=== PATIENT | female | born 1950 | race Caucasian/White ===

== ENCOUNTER → 2017-11-29 | Outpatient (CLI) | payer MEDICARE, OTHER ==
[2017-11-29 07:59] LABS: HEMATOCRIT 47.6 % (36.0-47.0); HEMOGLOBIN 15.4 g/dl (12.0-16.0); MEAN CORPUSCULAR HEMOGLOBIN 29.3 pg (27.0-33.0); MEAN CORPUSCULAR HGB CONC 32.4 g/dl (32.0-36.5); MEAN CORPUSCULAR VOLUME 90.7 fl (80.0-96.0); PLATELET COUNT, AUTOMATED 327 10^3/uL (150-450); RED BLOOD COUNT 5.25 10^6/uL (4.00-5.40); RED CELL DISTRIBUTION WIDTH 12.7 % (11.5-14.5); WHITE BLOOD COUNT 4.4 10^3/uL (4.0-10.0)
[2017-11-29 08:56] LABS: ESTIMATED AVERAGE GLUCOSE 192 MG/DL (60-110); HEMOGLOBIN A1c 8.3 %
[2017-11-29 09:36] LABS: ALBUMIN 3.7 GM/DL (3.2-5.2); ALKALINE PHOSPHATASE 125 U/L (45-117); ALT/SGPT 17 U/L (12-78); ANION GAP 5 MEQ/L (8-16); AST/SGOT 14 U/L (7-37); BILIRUBIN,TOTAL 0.5 MG/DL (0.2-1.0); BLOOD UREA NITROGEN 12 MG/DL (7-18); CALCIUM LEVEL 9.1 MG/DL (8.8-10.2); CARBON DIOXIDE LEVEL 28 MEQ/L (21-32); CHLORIDE LEVEL 109 MEQ/L (98-107); CHOLESTEROL LEVEL 182 MG/DL (<200); CHOLESTEROL RISK RATIO 3.137 (<5); CREATININE FOR GFR 0.67 MG/DL (0.55-1.02); GLOMERULAR FILTRATION RATE > 60.0 (>45); GLUCOSE, FASTING 89 MG/DL (80-110); HDL CHOLESTEROL 58 MG/DL (>40); NON-HDL-C 124 MG/DL; SODIUM LEVEL 142 MEQ/L (136-145); TOTAL PROTEIN 7.4 GM/DL (6.4-8.2); TRIGLYCERIDES LEVEL 80 MG/DL (<150)
[2017-11-29 12:24] LABS: TOTAL 25(OH) VITAMIN D 4.9 NG/ML (30.0-100.0)
== END ==
LOC: M RAD 07:19
DX: D64.9 Anemia, unspecified (principal); E03.9 Hypothyroidism, unspecified; Z79.899 Other long term (current) drug therapy
CPT/HCPCS: 71046

== ENCOUNTER → 2018-01-02 | Outpatient (CLI) | payer MEDICARE, OTHER ==
[2018-01-02 08:17] LABS: THYROID STIMULATING HORMONE 0.517 uIU/ML (0.358-3.740)
[2018-01-02 09:39] LABS: TOTAL 25(OH) VITAMIN D 22.6 NG/ML (30.0-100.0)
== END ==
LOC: M LAB 06:46
DX: E03.9 Hypothyroidism, unspecified (principal); R53.83 Other fatigue
CPT/HCPCS: 84443

== ENCOUNTER → 2018-02-27 | Outpatient (CLI) | payer MEDICARE, OTHER ==
[2018-02-27 08:40] LABS: THYROID STIMULATING HORMONE 0.061 uIU/ML (0.358-3.740)
[2018-02-27 08:40] LABS: THYROXINE (T4) 15.3 UG/DL (4.5-12.0)
[2018-03-01 10:49] LABS: TOTAL T3 119.3 NG/DL (60.0-181.0)
== END ==
LOC: M LAB 06:43
DX: E03.9 Hypothyroidism, unspecified (principal); R53.83 Other fatigue
CPT/HCPCS: 84443

== ENCOUNTER → 2018-05-30 | Outpatient (CLI) | payer MEDICARE, OTHER ==
[2018-05-30 06:59] LABS: HEMATOCRIT 47.6 % (36.0-47.0); HEMOGLOBIN 15.3 g/dl (12.0-15.5); MEAN CORPUSCULAR HEMOGLOBIN 29.5 pg (27.0-33.0); MEAN CORPUSCULAR HGB CONC 32.1 g/dl (32.0-36.5); MEAN CORPUSCULAR VOLUME 91.7 fl (80.0-96.0); PLATELET COUNT, AUTOMATED 271 10^3/uL (150-450); RED BLOOD COUNT 5.19 10^6/uL (4.00-5.40); WHITE BLOOD COUNT 5.3 10^3/uL (4.0-10.0)
[2018-05-30 07:36] LABS: ALBUMIN 3.4 GM/DL (3.2-5.2); ALBUMIN/GLOBULIN RATIO 0.89 (1.00-1.93); ALKALINE PHOSPHATASE 125 U/L (45-117); ALT/SGPT 19 U/L (12-78); ANION GAP 11 MEQ/L (8-16); AST/SGOT 17 U/L (7-37); BILIRUBIN,TOTAL 0.6 MG/DL (0.2-1.0); BLOOD UREA NITROGEN 15 MG/DL (7-18); CARBON DIOXIDE LEVEL 23 MEQ/L (21-32); CHLORIDE LEVEL 105 MEQ/L (98-107); CHOLESTEROL LEVEL 175 MG/DL (<200); CHOLESTEROL RISK RATIO 3.181 (<5); CREATININE FOR GFR 0.67 MG/DL (0.55-1.30); GLOMERULAR FILTRATION RATE > 60.0 (>45); GLUCOSE, FASTING 339 MG/DL (70-100); HDL CHOLESTEROL 55 MG/DL (>40); LDL CHOLESTEROL 97.6 MG/DL (<100); NON-HDL-C 120 MG/DL; SODIUM LEVEL 139 MEQ/L (136-145); THYROID STIMULATING HORMONE 0.983 uIU/ML (0.358-3.740); TOTAL PROTEIN 7.2 GM/DL (6.4-8.2); TRIGLYCERIDES LEVEL 112 MG/DL (<150)
[2018-05-30 09:23] LABS: ESTIMATED AVERAGE GLUCOSE 203 MG/DL (60-110); HEMOGLOBIN A1c 8.7 %
[2018-05-30 11:19] LABS: TOTAL 25(OH) VITAMIN D 56.2 NG/ML (30.0-100.0)
== END ==
LOC: M LAB 06:13
DX: D64.9 Anemia, unspecified (principal); E03.9 Hypothyroidism, unspecified; E11.9 Type 2 diabetes mellitus without complications
CPT/HCPCS: 84443

== ENCOUNTER → 2018-10-11 | Outpatient (REF) | payer MEDICARE, OTHER | LOC: M SFHCWAGY 15:44 | DX: N76.89 Other specified inflammation of vagina and vulva (principal); B96.89 Other specified bacterial agents as the cause of diseases classified elsewhere | CPT/HCPCS: 87077; 87186 ==

== ENCOUNTER 2019-02-03 16:17 | Inpatient (IN) | payer MEDICARE, OTHER ==
[~2019-02-03] VITALS: Ht 167.6 cm; Wt 95.5 kg
[~2019-02-03 16:17] MED LIST: /INSUNPH SC; ASPI325T PO; BAYE81TA PO; DOCU10ELUD PO; FERR325T3 PO; NAFC2INJ IV; NUCY75TA PO; RAMI2.5C PO; SYNT88TA2 PO; TYLE325T5 PO; ULTR50TA PO
[2019-02-03] MEDS ORDERED: LEVO125T4 (16:46)
--- NOTE | 2019-02-03 17:10 | REP ---
Clinical : Trauma. Technique: AP and lateral views of the left tibia / fibula. Findings: Comminuted fracture involving the proximal tibial metadiaphysis and suspected nondisplaced fracture involving the proximal fibular metadiaphysis. Overlying soft tissue swelling noted. Underlying age-related osteopenia and degenerative changes. Impression: Comminuted fractures of the proximal tibial metadiaphysis and suspected nondisplaced fracture of the proximal fibula. Electronically Signed by Lalito Araiza MD 02/03/2019 05:00 P
--- NOTE | 2019-02-03 17:13 | REP ---
Clinical: Trauma. Technique: AP, lateral, bilateral oblique views of the right ankle. Findings: Mildly displaced fractures involving the distal fibular metaphysis and medial malleolus with overlying soft tissue swelling and disruption of the ankle joint noted. Single oblique image 3 of 4 suggest the possibility of nondisplaced fracture involving either the talus or calcaneus which is not confirmed on the the other images. Impression: 1. Bimalleolar fracture dislocation at the ankle with overlying soft tissue swelling. 2. Single oblique image raises the possibility of nondisplaced fracture either involving the talus or calcaneus. Electronically Signed by Lalito Araiza MD 02/03/2019 05:04 P
--- NOTE | 2019-02-03 17:37 | REP ---
Clinical: Trauma with questionable hind foot injury. Technique: AP, lateral, bilateral oblique views of the right foot. Findings: Acute fracture dislocation involving the medial and lateral malleoli with overlying soft tissue swelling again noted. Osseous structures of the foot demonstrate age-related osteopenia and degenerative changes without further definite acute fracture. Impression: Fracture dislocation to the ankle. Degenerative changes of the foot without obvious further acute fracture identified. Electronically Signed by Lalito Arazia MD 02/03/2019 05:28 P
[2019-02-03] MEDS ORDERED: DRIS50003 PO ×2 (18:10)
[2019-02-03] MEDS ORDERED: ACET1TAB55 PO (18:10)
[2019-02-03] MEDS ORDERED: ASPI1TAB PO (18:10)
[2019-02-03] MEDS ORDERED: RAMI1CAP22 PO (18:10)
[2019-02-03] MEDS ORDERED: SYNT125T PO (18:10)
[2019-02-03] MEDS ORDERED: INSUN SC ×2 (18:10)
[2019-02-03] MEDS ORDERED: ALEV220T26 PO (18:11)
[2019-02-03] MEDS ORDERED: NS 1,000 ML IV SCH (18:15)
[2019-02-03] MEDS ORDERED: fentaNYL 100 MCG/2 ML INJECTION (J3010) IV ONE (18:15)
[2019-02-03 18:30] LABS: BASO # 0.1 10^3/uL (0.0-0.2); BASO % 0.4 % (0.0-1.0); EOS % 0.1 % (0.0-3.0); HEMATOCRIT 42.3 % (36.0-47.0); HEMOGLOBIN 13.8 g/dl (12.0-15.5); LYMPH # 1.4 10^3/uL (1.5-4.5); LYMPH % 10.7 % (24.0-44.0); MEAN CORPUSCULAR HEMOGLOBIN 29.8 pg (27.0-33.0); MEAN CORPUSCULAR HGB CONC 32.6 g/dl (32.0-36.5); MEAN CORPUSCULAR VOLUME 91.4 fl (80.0-96.0); MONO # 1.1 10^3/uL (0.0-0.8); MONO % 7.8 % (0.0-5.0); NEUTROPHILS # 10.8 10^3/uL (1.8-7.7); NEUTROPHILS % 80.7 % (36.0-66.0); PLATELET COUNT, AUTOMATED 335 10^3/uL (150-450); RED BLOOD COUNT 4.63 10^6/uL (4.00-5.40); WHITE BLOOD COUNT 13.4 10^3/uL (4.0-10.0)
[2019-02-03] MEDS ORDERED: fentaNYL 100 MCG/2 ML INJECTION (J3010) IV PRN (18:45)
[2019-02-03 18:55] LABS: BLOOD UREA NITROGEN 13 MG/DL (7-18); CALCIUM LEVEL 9.4 MG/DL (8.8-10.2); CARBON DIOXIDE LEVEL 26 MEQ/L (21-32); CHLORIDE LEVEL 104 MEQ/L (98-107); CREATININE FOR GFR 0.62 MG/DL (0.55-1.30); GLOMERULAR FILTRATION RATE > 60.0 (>45); GLUCOSE, FASTING 142 MG/DL (70-100); POTASSIUM SERUM 4.5 MEQ/L (3.5-5.1); SODIUM LEVEL 138 MEQ/L (136-145)
--- NOTE | 2019-02-03 19:32 | HPEPDOC ---
General Date of Admission 02/03/19 Attending Physician: KORINA TRAVIS MD Chief Complaint The patient is a 68-year-old female admitted with a reason for visit of L Tib/Fib Fx; R Ankle Fx. She sustained a mechanical fall in her kitchen resulting in immediate pain and BLE deformity and inability to bear weight. She was brought to the ER and found to have a R bimalleolar ankle fx and a L proximal tibia fracture. Patient has a significant PMH/PSH of a L femur and L distal tibia ORIF in 2012. Post op course was complicated by a staph infection of the L distal tibia which underwent I&D, 3 months of IV antibiotics, followed by HW removal when fracture healed. No complications related to the femur fracture. She denied any antecedent symptoms prior to her fall. Source: Patient Exam Limitations: No limitations Severity: Severe Associated Symptoms: Denies Symptoms Home Medications Scheduled Aspirin (Aspirin 81) 81 Mg Tab, 81 MG PO DAILY, (Reported) Insulin Human NPH (Novolin N) 1 Ml Susp, 26 UNITS SC QAM, (Reported) Insulin Human NPH (Novolin N) 1 Ml Susp, 8 UNITS SC QPM, (Reported) Levothyroxine Sodium (Synthroid) 125 Mcg Tab, 125 MCG PO DAILY, (Reported) Ramipril (Ramipril) 2.5 Mg Cap, 2.5 MG PO DAILY, (Reported) Vitamin D (Drisdol) 50,000 Unit Cap, 50,000 UNIT PO QWEEK, (Reported) SUNDAY EVENING Scheduled PRN Acetaminophen (Acetaminophen) 325 Mg Tab, 650 MG PO Q4H PRN for PAIN, (Reported) Naproxen Sodium (Aleve) 220 Mg Tab, 220 MG PO BID PRN for PAIN, (Reported) Allergies Coded Allergies: Latex (Verified Allergy, Intermediate, RASH,BLISTERS, 09/05/13) Acetaminophen (Verified Allergy, Unknown, 02/03/19) CAN TAKE TYLENOL, N/V FROM HYDROCODONE IN VICODIN Hydrocodone (Verified Allergy, Unknown, 02/03/19) N/V Past Medical History Medical History Insulin dependent diabetes Hypothyroidism Prior MSK infection per HPI Surgical History L femur and distal tibia ORIF per HPI Family History Significant Family History: Noncontributory Social History * Smoker: former Smoker (quit 5 y ago) Alcohol: Denies Drugs: denies Psychosocial History: No pertinent psych hx Lives in [place] with . 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 Independent in all ADLs Review of Systems Constitutional: Denies: Chills, Fever, Malaise, Night Sweats, Weakness, Fatigue, Weight Loss, Lethargy, Other Eyes: Denies: Pain, Vision change, Conjunctivae inflammation, Eyelid inflammation, Redness, Other ENT: Denies: Head Aches, Ear Pain, Dysphagia, Sinus Congestion, Post Nasal Drip, Sore Throat, Epistaxis, Other Symptoms Skin: Denies: Rash, Lesions, Jaundice, Bruising, Itching, Dry, Breakdown, Nail Changes, Other Pulmonary: Denies: Dyspnea, Cough, Pleuritic Chest Pain, Other Symptoms Cardiovascular: Denies: Chest Pain, Palpitations, Orthopnea, Paroxysmal Noc. Dyspnea, Edema, Lt Headedness, Other Symptoms Gastrointestinal: Denies: Nausea, Vomiting, Abdominal Pain, Diarrhea, Constipation, Melena, Hematochezia, Other Symptoms Genitourinary: Denies: Dysuria, Frequency, Incontinence, Hematuria, Retention, Other Symptoms Hematologic: Denies: Bruising, Bleeding Excessively, Petecchia, Purpura, Enlarged Lymph Nodes, Other Hematologic Endocrine: Denies: Polydipsia, Polyphagia, Polyuria, Heat Intolerance, Cold Intolerance, Other Endocrine Sx Neurological: Denies: Weakness, Numbness, Incoordination, Change in speech, Confusion, Seizures, Other Symptoms Psych: Denies: Mood Normal, Anxiety, Depression, Memory Issues, Thoughts of Self Harm, Anger, Thoughts of Harming Other, Other Psych Physical Examination General Exam: Positive: Alert, Cooperative, Mild Distress Eye Exam: Positive: PERRLA ENT Exam: Positive: Atraumatic Chest Exam: Positive: Normal air movement Heart Exam: Positive: Rate Normal Extremity Exam: Positive: Other (RLE with obvious deformity of R ankle. Small abrasion on medial aspect of R ankle. Minimal soft tissue swelling. Intact distal neurovascular exam. LLE exam with diffuse soft tissue swelling of L leg. Maximally tender about proximal tibia. No pain with passive stretch of toes. Neurovascularly intact distally. Knee exam deferred secondary to pain. ) Vital Signs Vital Signs Date Time Temp Pulse Resp B/P (MAP) Pulse Ox O2 Delivery O2 Flow Rate FiO2 02/03/19 19:12 21 02/03/19 16:55 180/96 (124) 02/03/19 16:36 97.8 85 98 Room Air Laboratory Data Labs 24H Laboratory Tests 2 02/03/19 17:48: Bedside Glucose (Misc Panel) 147H 02/03/19 18:14: Immature Granulocyte % (Auto) 0.3, White Blood Count 13.4H, Red Blood Count 4.63, Hemoglobin 13.8, Hematocrit 42.3, Mean Corpuscular Volume 91.4, Mean Corpu scular Hemoglobin 29.8, Mean Corpuscular Hemoglobin Concent 32.6, Red Cell Distribution Width 12.8, Platelet Count 335, Neutrophils (%) (Auto) 80.7H, Lymphocytes (%) (Auto) 10.7L, Monocytes (%) (Auto) 7.8H, Eosinophils (%) (Auto) 0.1, Basophils (%) (Auto) 0.4, Neutrophils # (Auto) 10.8H, Lymphocytes # (Auto) 1.4L, Monocytes # (Auto) 1.1H, Eosinophils # (Auto) 0.0, Basophils # (Auto) 0.1, Nucleated Red Blood Cells % (auto) 0.0, Anion Gap 8, Glomerular Filtration Rate > 60.0, Blood Urea Nitrogen 13, Creatinine 0.62, Sodium Level 138, Potassium Level 4.5, Chloride Level 104, Carbon Dioxide Level 26, Calcium Level 9.4 CBC/BMP Laboratory Tests 02/03/19 18:14 Red Blood Count 4.63, Mean Corpuscular Volume 91.4, Mean Corpuscular Hemoglobin 29.8, Mean Corpuscular Hemoglobin Concent 32.6, Red Cell Distribution Width 12.8, Neutrophils (%) (Auto) 80.7 H, Lymphocytes (%) (Auto) 10.7 L, Monocytes (%) (Auto) 7.8 H, Eosinophils (%) (Auto) 0.1, Basophils (%) (Auto) 0.4, Neutrophils # (Auto) 10.8 H, Lymphocytes # (Auto) 1.4 L, Monocytes # (Auto) 1.1 H, Eosinophils # (Auto) 0.0, Basophils # (Auto) 0.1, Calcium Level 9.4 RAD Interpretation STUDY: Plain radiographs of the right ankle demonstrates a displaced bimalleolar ankle fracture. Radiographs of the left tib/fib demonstrate an extraarticular minmally displaced proximal tibia fracture Assessment/Plan Assessment: 68 y/o female with a R bimalleolar ankle fracture and L proximal tibia fracture Plan: I discussed with the patient the nature of her injuries. Given the unstable nature of her bilateral LE injuries, she would benefit from surgical fixation of both her R ankle and L proximal tibia to allow for early active motion of the left lower extremity. Fixation options for the tibia include intramedullary nail fixation versus ORIF with plate. Given her previous infection history at the distal tibia on the left side, I would prefer to avoid placing hardware which would extend to the ankle (IM nail), despite the fact that earlier weight bearing may be permitted with nail fixation. We will proceed with ORIF R ankle and L tibia. I counseled the patient on her increased risk of infection given her diabetes and infection history. She expressed understanding and provided informed consent for R ankle and L tibia ORIF. I counseled her that I will be her operating surgeon, but her follow up care will be conducted by [facility]. She expressed understanding with this arrangement and agreed to proceed. Problems (1) Left fibular fracture Status: Acute Discussed With: Patient (2) Left tibial fracture Status: Acute Discussed With: Patient (3) Bimalleolar fracture of right ankle Status: Acute Discussed With: Patient Plan / VTE VTE Prophylaxis Ordered?: Yes (lovenox post operatively) Plan / Urinary Catheter Urinary Catheter: Place Rodríguez (will place in OR and d/c after surgery) Reason for insertion/continuin: Perioperative Plan Plan I discussed with the patient the nature of her injuries. Given the unstable nature of her bilateral LE injuries, she would benefit from surgical fixation of both her R ankle and L proximal tibia to allow for early active motion of the left lower extremity. Fixation options for the tibia include intramedullary nail fixation versus ORIF with plate. Given her previous infection history at the distal tibia on the left side, I would prefer to avoid placing hardware which would extend to the ankle (IM nail), despite the fact that earlier weight bearing may be permitted with nail fixation. We will proceed with ORIF R ankle and L tibia. I counseled the patient on her increased risk of infection given her diabetes and infection history. She expressed understanding and provided informed consent for R ankle and L tibia ORIF. I counseled her that I will be her operating surgeon, but her follow up care will be conducted by [facility]. She expressed understanding with this arrangement and agreed to proceed. IVF: Initiate Diet: Make NPO Activity: Bedrest Therapy: PT Pt and Family Services: Home Care Anticipated Discharge: Sub Acute Rehab KORINA TRAVIS MD Feb 03, 2019 19:32
[2019-02-03] MEDS ORDERED: hydrALAZINE INJ 20 MG/ML VIAL IV STA (20:17)
[2019-02-03] MEDS ORDERED: GLUCAGON FOR INJ 1 MG VIAL (J1610) SC PRN (20:30)
[2019-02-03] MEDS ORDERED: DEXTROSE 50% 50 ML SYRINGE IV PRN (20:30)
[2019-02-03] MEDS ORDERED: GLUCOSE 4 GM CHEW TABLET PO PRN (20:30)
[2019-02-03] MEDS ORDERED: BUPIVACAINE HCL 0.5% 30 ML VIAL As Ordered ONE (20:31)
[2019-02-03] MEDS ORDERED: LIDOCAINE 1% SDV INJ 30 ML VIAL As Ordered ONE (20:31)
[2019-02-03] MEDS ORDERED: fentaNYL 100 MCG/2 ML INJECTION (J3010) As Ordered ONE ×3 (20:42→22:53)
[2019-02-03] MEDS ORDERED: MIDAZOLAM INJ 2 MG/2 ML VIAL (J2250) As Ordered ONE (20:42)
[2019-02-03] MEDS ORDERED: ONDANSETRON 4MG/2ML VIAL (J2405) As Ordered ONE (20:44)
[2019-02-03] MEDS ORDERED: dexameTHASONE 4 MG/ML 1ML VIAL (J1100) As Ordered ONE (20:44)
[2019-02-03] MEDS ORDERED: PROPOFOL 200 MG/20 ML VIAL As Ordered ONE (20:46)
[2019-02-03] MEDS ORDERED: LIDOCAINE 2% INJ 100 MG/5 ML SDV (FOR ANES.) As Ordered ONE (20:47)
[2019-02-03] MEDS ORDERED: ROCURONIUM BROMIDE 50 MG/5 ML VIAL As Ordered ONE ×2 (20:48→22:17)
[2019-02-03] MEDS ORDERED: ceFAZolin 2 GM/D5W 50 ML IV BAG (J0690 PER 500MG) As Ordered ONE (21:03)
--- NOTE | 2019-02-03 21:24 | ECGEPIP ---
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 Order Number: [id number] Reading MD: Mari Guevara Measurements Intervals Marshall Rate: 86 P: 49 WY: 138 QRS: 41 QRSD: 84 T: 48 QT: 373 QTc: 447 Interpretive Statements SINUS RHYTHM WITH OCCASIONAL SUPRAVENTRICULAR PREMATURE COMPLEXES INCREASED ECTOPY 11/29/17 Electronically Signed On 02-03-2019 21:24:10 EDT by Mari Guevara
[2019-02-03] MEDS ORDERED: VANCOMYCIN 1000 MG/20 ML VIAL (J3370) As Ordered ONE (21:48)
--- NOTE | 2019-02-03 22:18 | HPE ---
DATE OF ADMISSION: 02/03/2019 CHIEF COMPLAINT: Status post fall. HISTORY OF THE PRESENT ILLNESS: This is a 68-year-old female with a past medical history of insulin-dependent diabetes, hypertension, hypothyroidism, who presents with a chief complaint of fall today. Patient reports that she went into her kitchen, which she normally does not do unless she is wearing socks with some kind of slip protection or slippers, but today she went into the kitchen with just her socks and she immediately slipped and fell and comes in with significant lower extremity pain. In the emergency room, she was noted to have a left tibia-fibula (tib-fib) fracture and a right bimalleolar ankle fracture, and we are being called to assist with admitting this patient given her history of diabetes. REVIEW OF SYSTEMS: Negative in 14 out of 14 systems except as noted above. PAST MEDICAL HISTORY: As above in history of the present illness. PAST SURGICAL HISTORY: Patient did have a fall about 6 years ago and had a left femur fracture repair at that time. HOME MEDICATIONS: Patient's home medications are: - Tylenol as needed - NPH 8 units subcu every evening - insulin NPH 26 units subcu every morning - vitamin D 50,000 units every week - Naproxen 220 mg by mouth twice a day as needed for pain - aspirin 81 mg by mouth daily - Synthroid 125 mcg daily - ramipril 2.5 mg daily ALLERGIES: The patient is allergic to ACETAMINOPHEN, HYDROCODONE, LATEX. SOCIAL HISTORY: The patient lives with her . She does have one adult daughter. Her son has . She quit smoking 5 years ago, and prior to that smoked a half a pack a day for many years. No alcohol or drugs. FAMILY HISTORY: The patient does have a grandfather with diabetes. PHYSICAL EXAM: Vital Signs: Currently she is afebrile to 97.8, blood pressure 180/96, pulse of 85, respiratory rate of 20, 98% on room air. In general, she is in no acute distress but does report pain and appears somewhat uncomfortable. HEENT Exam: Oropharynx is clear. Cardiovascular: Regular rate and rhythm. No murmurs, rubs, gallops. Lungs: Clear to auscultation bilaterally. Abdomen: Obese, nontender. Extremities: Her right lower extremity is already in a soft brace with an Hal wrap. Her left lower extremity has some bruising and swelling. No clubbing, cyanosis, edema. Skin: Intact. Psychiatric: Mood stable. LABS: Reveal a white count to 13.4, hemoglobin 13.8, platelets of 335. Chemistry with a potassium of 4.5, creatinine of 0.6, glucose of 142. IMAGING: Shows a left tib-fib x-ray that shows comminuted fractures of the proximal tibia metadiaphysis and suspected nondisplaced fracture of the proximal fibula. Ankle x-ray on the right shows bimalleolar fracture dislocation of ankle with overlying soft tissue swelling. Single oblique image raises a possibility of nondisplaced fracture either involving the talus or the calcaneus. Foot x-ray shows fracture-dislocation to the ankle. Degenerative changes of the foot without obvious further acute fracture identified. ASSESSMENT AND PLAN: This is a 68-year-old female with a past medical history of insulin-dependent diabetes, hypertension, hypothyroidism, who presents status post fall, found to have a left tib-fib fracture and a right bimalleolar fracture. We were consulted to assist with admission for this patient given her past medical history. PROBLEMS: 1. Right ankle bimalleolar fracture and left tib-fib fracture. Per orthopedic surgery. They plan to take her to the operating room (OR) this evening for surgery. 2. Preoperative risk assessment. Patient's RCRI score is 0; therefore, she is at a 3.9% 30-day risk of , myocardial infarction (SD), or cardiac arrest from the surgery. She may proceed with surgery with risks and benefits to be explained per her orthopedic surgeon for the procedure specifically. 3. She has a history of hypertension, and she is quite hypertensive right now in the ER with blood pressure of 180/96. She is reporting a lot of pain from her fall. Pain control per orthopedic surgery. I am giving her a one-time dose of hydralazine preoperatively. I am continuing her home ramipril. Should she continue to have high blood pressures after her pain is adequately controlled, the ramipril can be up titrated. 4. Diabetes. She is insulin-dependent diabetic. She is going to be nothing by mouth for the surgery; therefore, I am going to hold her home insulin for now and place her on a sliding scale with every 6 hour fingersticks. Her diet can be resumed postoperatively and her home medications resumed postoperatively. 5. Deep vein thrombosis (DVT) prophylaxis. To be determined per orthopedic surgery. 6. Pain control. To be determined per orthopedic surgery.
[2019-02-03] MEDS ORDERED: ACETAMINOPHEN 1000MG 100ML IV BTL (OFIRMEV) (J0131 PER 10MG) As Ordered ONE (22:45)
[2019-02-03] MEDS ORDERED: SUGAMMADEX SODIUM 500 MG/5 ML VIAL (BRIDION) As Ordered ONE (23:12)
[2019-02-03] MEDS ORDERED: HYDROmorphone HCL 2 MG/ML 1ML VIAL (J1170) As Ordered ONE (23:34)
[2019-02-03] MEDS ORDERED: LABETALOL HCL 100 MG/20 ML VIAL As Ordered ONE (23:53)
[2019-02-04] VITALS (10 sets, daily range): BP systolic 101–156; BP diastolic 55–81
[2019-02-04] MEDS ORDERED: HumaLOG INSULIN (NovoLOG) PER UNIT SC SCH
--- NOTE | 2019-02-04 01:03 | CR.PDOC ---
General Date of Consultation: Feb 03, 2019 Attending Physician: KORINA TRAVIS MD Consultation Reason for consultation: R ankle fx, L tibia fracture 02/03/19 Attending Physician: KORINA TRAVIS MD Chief Complaint The patient is a 68-year-old female admitted with a reason for visit of L Tib/Fib Fx; R Ankle Fx. She sustained a mechanical fall in her kitchen resulting in immediate pain and BLE deformity and inability to bear weight. She was brought to the ER and found to have a R bimalleolar ankle fx and a L proximal tibia fracture. Patient has a significant PMH/PSH of a L femur and L distal tibia ORIF in 2012. Post op course was complicated by a staph infection of the L distal tibia which underwent I&D, 3 months of IV antibiotics, followed by HW removal when fracture healed. No complications related to the femur fracture. She denied any antecedent symptoms prior to her fall. Source: Patient Exam Limitations: No limitations Severity: Severe Associated Symptoms: Denies Symptoms Home Medications Allergies Coded Allergies: Latex (Verified Allergy, Intermediate, RASH,BLISTERS, 09/05/13) Acetaminophen (Verified Allergy, Unknown, 02/03/19) CAN TAKE TYLENOL, N/V FROM HYDROCODONE IN VICODIN Hydrocodone (Verified Allergy, Unknown, 02/03/19) N/V Past Medical History Past Medical History Medical History Insulin dependent diabetes Hypothyroidism Prior MSK infection per HPI Surgical History L femur and distal tibia ORIF per HPI Family History Significant Family History: Noncontributory Social History * Smoker: former Smoker (quit 5 y ago) Alcohol: Denies Drugs: denies Psychosocial History: No pertinent psych hx Lives in [place] with . 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 Independent in all ADLs Review of Systems Review of Systems Constitutional: Denies: Chills, Fever, Malaise, Night Sweats, Weakness, Fatigue, Weight Loss, Lethargy, Other Eyes: Denies: Pain, Vision change, Conjunctivae inflammation, Eyelid inflammation, Redness, Other ENT: Denies: Head Aches, Ear Pain, Dysphagia, Sinus Congestion, Post Nasal Drip, Sore Throat, Epistaxis, Other Symptoms Skin: Denies: Rash, Lesions, Jaundice, Bruising, Itching, Dry, Breakdown, Nail Changes, Other Pulmonary: Denies: Dyspnea, Cough, Pleuritic Chest Pain, Other Symptoms Cardiovascular: Denies: Chest Pain, Palpitations, Orthopnea, Paroxysmal Noc. Dyspnea, Edema, Lt Headedness, Other Symptoms Gastrointestinal: Denies: Nausea, Vomiting, Abdominal Pain, Diarrhea, Constipation, Melena, Hematochezia, Other Symptoms Genitourinary: Denies: Dysuria, Frequency, Incontinence, Hematuria, Retention, Other Symptoms Hematologic: Denies: Bruising, Bleeding Excessively, Petecchia, Purpura, Enlarged Lymph Nodes, Other Hematologic Endocrine: Denies: Polydipsia, Polyphagia, Polyuria, Heat Intolerance, Cold Intolerance, Other Endocrine Sx Neurological: Denies: Weakness, Numbness, Incoordination, Change in speech, Confusion, Seizures, Other Symptoms Psych: Denies: Mood Normal, Anxiety, Depression, Memory Issues, Thoughts of Self Harm, Anger, Thoughts of Harming Other, Other Psych Physical Examination Physical Examination General Exam: Positive: Alert, Cooperative, Mild Distress Eye Exam: Positive: PERRLA ENT Exam: Positive: Atraumatic Chest Exam: Positive: Normal air movement Heart Exam: Positive: Rate Normal Extremity Exam: Positive: Other (RLE with obvious deformity of R ankle. Small abrasion on medial aspect of R ankle. Minimal soft tissue swelling. Intact distal neurovascular exam. LLE exam with diffuse soft tissue swelling of L leg. Maximally tender about proximal tibia. No pain with passive stretch of toes. Neurovascularly intact distally. Knee exam deferred secondary to pain. ) RAD Interpretation STUDY: Plain radiographs of the right ankle demonstrates a displaced bimalleolar ankle fracture. Radiographs of the left tib/fib demonstrate an extraarticular minmally displaced proximal tibia fracture Assessment/Plan Assessment/Plan Assessment: 68 y/o female with a R bimalleolar ankle fracture and L proximal tibia fracture Plan: I discussed with the patient the nature of her injuries. Given the unstable nature of her bilateral LE injuries, she would benefit from surgical fixation of both her R ankle and L proximal tibia to allow for early active motion of the left lower extremity. Fixation options for the tibia include intramedullary nail fixation versus ORIF with plate. Given her previous infection history at the distal tibia on the left side, I would prefer to avoid placing hardware which would extend to the ankle (IM nail), despite the fact that earlier weight bearing may be permitted with nail fixation. We will proceed with ORIF R ankle and L tibia. I counseled the patient on her increased risk of infection given her diabetes and infection history. She expressed understanding and provided informed consent for R ankle and L tibia ORIF. I counseled her that I will be her operating surgeon, but her follow up care will be conducted by [facility]. She expressed understanding with this arrangement and agreed to proceed. Vital Signs/I&O Vital Signs Date Time Temp Pulse Resp B/P (MAP) Pulse Ox O2 Delivery O2 Flow Rate FiO2 02/03/19 19:12 21 02/03/19 16:55 180/96 (124) 02/03/19 16:36 97.8 85 98 Room Air Laboratory Data Labs 24H Laboratory Tests 2 02/03/19 17:48: Bedside Glucose (Misc Panel) 147H 02/03/19 18:14: Immature Granulocyte % (Auto) 0.3, White Blood Count 13.4H, Red Blood Count 4.63, Hemoglobin 13.8, Hematocrit 42.3, Mean Corpuscular Volume 91.4, Mean Corpuscular Hemoglobin 29.8, Mean Corpuscular Hemoglobin Concent 32.6, Red Cell Distribution Width 12.8, Platelet Count 335, Neutrophils (%) (Auto) 80.7H, Lymphocytes (%) (Auto) 10.7L, Monocytes (%) (Auto) 7.8H, Eosinophils (%) (Auto) 0.1, Basophils (%) (Auto) 0.4, Neutrophils # (Auto) 10.8H, Lymphocytes # (Auto) 1.4L, Monocytes # (Auto) 1.1H, Eosinophils # (Auto) 0.0, Basophils # (Auto) 0.1, Nucleated Red Blood Cells % (auto) 0.0, Anion Gap 8, Glomerular Filtration Rate > 60.0, Blood Urea Nitrogen 13, Creatinine 0.62, Sodium Level 138, Potassium Level 4.5, Chloride Level 104, Carbon Dioxide Level 26, Calcium Level 9.4 CBC/BMP Laboratory Tests 02/03/19 18:14 Red Blood Count 4.63, Mean Corpuscular Volume 91.4, Mean Corpuscular Hemoglobin 29.8, Mean Corpuscular Hemoglobin Concent 32.6, Red Cell Distribution Width 12.8, Neutrophils (%) (Auto) 80.7 H, Lymphocytes (%) (Auto) 10.7 L, Monocytes (% ) (Auto) 7.8 H, Eosinophils (%) (Auto) 0.1, Basophils (%) (Auto) 0.4, Neutrophils # (Auto) 10.8 H, Lymphocytes # (Auto) 1.4 L, Monocytes # (Auto) 1.1 H, Eosinophils # (Auto) 0.0, Basophils # (Auto) 0.1, Calcium Level 9.4 Allergies Coded Allergies: Latex (Verified Allergy, Intermediate, RASH,BLISTERS, 09/05/13) Acetaminophen (Verified Allergy, Unknown, 02/03/19) CAN TAKE TYLENOL, N/V FROM HYDROCODONE IN VICODIN Hydrocodone (Verified Allergy, Unknown, 02/03/19) N/V Home Medications Scheduled Aspirin (Aspirin 81) 81 Mg Tab, 81 MG PO DAILY, (Reported) Insulin Human NPH (Novolin N) 1 Ml Susp, 26 UNITS SC QAM, (Reported) Insulin Human NPH (Novolin N) 1 Ml Susp, 8 UNITS SC QPM, (Reported) Levothyroxine Sodium (Synthroid) 125 Mcg Tab, 125 MCG PO DAILY, (Reported) Ramipril (Ramipril) 2.5 Mg Cap, 2.5 MG PO DAILY, (Reported) Vitamin D (Drisdol) 50,000 Unit Cap, 50,000 UNIT PO QWEEK, (Reported) SUNDAY EVENING Scheduled PRN Acetaminophen (Acetaminophen) 325 Mg Tab, 650 MG PO Q4H PRN for PAIN, (Reported) Naproxen Sodium (Aleve) 220 Mg Tab, 220 MG PO BID PRN for PAIN, (Reported) KORINA TRAVIS MD Feb 03, 2019 20:27
[2019-02-04] MEDS ORDERED: MORPHINE 10 MG/ML 1ML VIAL (J2270) As Ordered ONE (01:22)
[2019-02-04] MEDS: MORPHINE 10 MG/ML 1ML VIAL (J2270) IV PRN ×5 (01:27→02:00)
[2019-02-04] MEDS ORDERED: METOCLOPRAMIDE INJ 10MG/2ML VIAL (J2765) IV PRN (01:30)
[2019-02-04] MEDS ORDERED: LR 1,000 ML IV SCH (01:30)
[2019-02-04] MEDS ORDERED: MORPHINE 4 MG/ML 1ML VIAL/SYRINGE (J2270) IV PRN (01:30)
[2019-02-04] MEDS ORDERED: ONDANSETRON 4MG/2ML VIAL (J2405) IV PRN (01:30)
[2019-02-04] MEDS ORDERED: traMADol 50 MG TAB PO PRN (01:30)
[2019-02-04] MEDS: oxyCODONE 5MG TAB PO PRN ×2 (01:44→02:10)
[2019-02-04] MEDS ORDERED: fentaNYL 100 MCG/2 ML INJECTION (J3010) As Ordered ONE (01:59)
[2019-02-04] MEDS: fentaNYL 100 MCG/2 ML INJECTION (J3010) IV PRN ×3 (02:05→02:18)
[2019-02-04] MEDS ORDERED: oxyCODONE 5MG TAB As Ordered ONE (02:08)
[2019-02-04] MEDS ORDERED: ceFAZolin SOD 1 GM in D5W MINI-BAG PLUS 50 ML IV SCH (05:00)
[2019-02-04] MEDS: LEVOTHYROXINE 125MCG TABLET (0.125MG) PO SCH (05:16)
[2019-02-04] MEDS: VANCOMYCIN HCL 1,000 MG, VIAL MATE ADAPTER 1 EACH in D5W 250 ML IV SCH ×2 (06:23→17:59)
[2019-02-04 06:59] LABS: HEMATOCRIT 37.1 % (36.0-47.0); MEAN CORPUSCULAR HEMOGLOBIN 29.4 pg (27.0-33.0); MEAN CORPUSCULAR HGB CONC 31.8 g/dl (32.0-36.5); MEAN CORPUSCULAR VOLUME 92.3 fl (80.0-96.0); PLATELET COUNT, AUTOMATED 288 10^3/uL (150-450); RED BLOOD COUNT 4.02 10^6/uL (4.00-5.40); WHITE BLOOD COUNT 10.7 10^3/uL (4.0-10.0)
[2019-02-04 07:08] LABS: HEMOGLOBIN 11.8 g/dl (12.0-15.5)
[2019-02-04 07:27] LABS: BLOOD UREA NITROGEN 12 MG/DL (7-18); CALCIUM LEVEL 8.2 MG/DL (8.8-10.2); CARBON DIOXIDE LEVEL 23 MEQ/L (21-32); CHLORIDE LEVEL 101 MEQ/L (98-107); CREATININE FOR GFR 0.73 MG/DL (0.55-1.30); GLOMERULAR FILTRATION RATE > 60.0 (>45); GLUCOSE, FASTING 333 MG/DL (70-100); SODIUM LEVEL 134 MEQ/L (136-145)
--- NOTE | 2019-02-04 07:30 | REP ---
Clinical: Status post fixation. Technique: Real time intraoperative fluoroscopic imaging using portable C-arm technique. Findings: Three images demonstrate the patient to be status post satisfactory open reduction and fixation for distal fibular and medial malleolar fractures. Total fluoroscopic time 24 seconds. Impression: Status post satisfactory open reduction and fixation. Electronically Signed by Lalito Araiza MD 02/04/2019 07:21 A
[2019-02-04] MEDS ORDERED: ceFAZolin SOD 1 GM in D5W MINI-BAG PLUS 50 ML IV ONE (08:00)
[2019-02-04] MEDS: HumaLOG INSULIN (NovoLOG) PER UNIT SC SCH ×4 (08:08→23:06)
[2019-02-04] MEDS: RAMIPRIL 1.25 MG CAP PO SCH (08:09)
[2019-02-04] MEDS: MOM 30ML SUSPENSION UDC PO SCH (08:09)
[2019-02-04] MEDS: SENOKOT S TAB PO SCH ×2 (08:09→20:09)
[2019-02-04] MEDS: MIRALAX *UNIT DOSE* 17GM PACKET PO SCH (08:09)
--- NOTE | 2019-02-04 08:59 | REP ---
C-ARM VIEWS LOWER LEG: Five C-arm views lower leg performed. There is a metallic plate and multiple metallic screws placed in the proximal tibia for a fracture at that location. Structures are relatively well aligned. Fluoroscopy time is 2 minutes 40 seconds. Electronically Signed by Jaleel Hargrove MD 02/05/2019 10:02 A
[2019-02-04] MEDS ORDERED: ASPIRIN 81 MG ENTERIC TAB PO SCH (09:00)
--- NOTE | 2019-02-04 09:28 | REP ---
Right ankle: Three views. History: Post surgery. Comparison study: February 03, 2019. Findings: X-rays in plaster demonstrate open reduction internal fixation pinning of the medial malleolar fracture and screw plate fixation of the distal fibular fracture. Ankle mortise is well aligned. Electronically Signed by Jeremiah Lantigua MD 02/04/2019 11:29 A
--- NOTE | 2019-02-04 10:31 | REP ---
Left knee: Two views. History: Postop. Comparison study is from February 03, 2019 showing a proximal tibial fracture. Findings: AP and lateral views demonstrate screw plate fixation device along the lateral aspect of proximal tibia transfixing the fracture. There is some fracture diastases medially. The old screw plate fixation device in the distal femur is again seen. There is advanced diffuse osteopenia. Lateral skin nolan are noted. Electronically Signed by Jeremiah Lantigua MD 02/04/2019 10:23 A
[2019-02-04] MEDS: traMADol 50 MG TAB PO PRN ×2 (12:07→20:10)
--- NOTE | 2019-02-04 14:48 | RO ---
DATE OF PROCEDURE: 02/04/2019 PREOPERATIVE DIAGNOSES: Right bimalleolar ankle fracture and left proximal tibia fracture. POSTPROCEDURE DIAGNOSES: Right bimalleolar ankle fracture and left proximal tibia fracture. PROCEDURE PERFORMED: Right ankle open reduction internal fixation, bimalleolar ankle fracture and left tibia open reduction internal fixation. SURGEON: Dr. Amandeep Marin BUILDING SERVICES ENGINEER: Mariza Stephenson ANESTHESIA PROVIDER: Dr. Zamudio. ANESTHESIA: General endotracheal anesthesia and local. TOURNIQUET TIME: 65 minutes at 250 mmHg on right thigh. No tourniquet was used for left open reduction, internal fixation (ORIF). ESTIMATED BLOOD LOSS: 100 mL ANTIBIOTICS: 2 grams Ancef and 1 gram of vancomycin IV given within 1 hour of incision. IMPLANTS: Implants used were Synthes eight-hole one-third tubular plate for fibular fixation and two 4 mm partially threaded cannulated screws for medial malleolar fixation, an eight-hole 4.5 mm lateral proximal tibial locking plate was used for left proximal tibial fixation. Please see an nursing anesthesia record for exact screw lengths and numbers used. MATERIALS SENT TO LABORATORY: None. COMPLICATIONS: None. INDICATIONS FOR PROCEDURE: Liliana Stewart is a 68-year-old obese, diabetic female who sustained a mechanical fall from standing height resulting in a right bimalleolar ankle fracture and left proximal tibia fracture. She has significant past surgical history for a left femur and left distal tibia ORIF, which was complicated by infection of the left distal tibia and subsequent hardware removal. The patient had radiographs consistent with a displaced bimalleolar right ankle fracture and an extra-articular left proximal tibia fracture. I counseled the patient regarding the risks, benefits, indications, and alternatives of operative versus nonoperative management and recommended open reduction internal fixation of her ankle and right ankle and left proximal tibia. She was counseled that she has increased risk of infection given her diabetes and her previous history of infection. The patient expressed understanding. I also counseled her that I will be her operating surgeon and her followup care will be conducted by [facility]. She expressed understanding and provided informed consent for right ankle and left proximal tibial open reduction, internal fixation (ORIF). INTRAOPERATIVE FINDINGS: Right ankle syndesmosis was stable after bimalleolar ankle fixation and left knee was stable after left proximal tibial fixation. DESCRIPTION OF OPERATION: The patient was positively identified in the preop holding and surgical sites were marked. She was then brought to the operating room and placed under general endotracheal anesthesia. She was positioned supine on a regular table with all bony prominences appropriately padded. She was prepped and draped n the usual sterile fashion. A final time-out was performed. Both legs were prepped and draped at the same time. I began with fixation of the right ankle and made a 10 cm incision laterally along the distal fibula and dissected through skin and subcutaneous tissue. The superficial peroneal nerve was proximal to the surgical field and not visualized. I identified the distal fibula fracture. I cleared periosteum anteriorly and posteriorly off the fracture site. The fracture was exposed, and I obtained anatomic reduction using pointed reduction tenaculum. I placed a single 2.7 mm lag by technique screw, which maintained anatomic reduction. This was then followed by placement of a one-third tubular plate for neutralization. I placed a 4 mm cancellous screw, fully threaded distally and 3.5 mm cortex screw proximally to affix the plate to bone. This was then followed by placement of 2 additional 3.5 mm locking screws proximally, and one distally into the tubular plate to complete fixation of the fibula. I used intraoperative c-arm fluoroscopy to confirm anatomic reduction. I then turned attention to the medial malleolus and made a 3 cm incision along the posterior aspect of the medial malleolus. I dissected skin and subcutaneous tissue. I identified the fracture site, periosteum and other interposed soft tissue was cleared from the fracture site. I irrigated the ankle joint to ensure that there was no debris within the ankle joint. I then obtained anatomic reduction and placed the two guidewires for the partially threaded cancellous screws and then drilled sequentially for the cancellous screws and tightened them sequentially using intraoperative C-arm fluoroscopic guidance. After completion of bimalleolar ankle fixation, I performed intraoperative cotton test to confirm stability of the syndesmosis and syndesmosis remained stable. I then took final fluoroscopic images. I then irrigated the wounds with normal saline and closed in layers. The medial malleolar wound was closed with buried 2-0 Vicryl suture in subcutaneous layer and interrupted 3-0 nylon suture in horizontal mattress fashion. The fibular wound was closed with 2-0 Vicryl for the subcutaneous layer in a buried fashion, followed by running 3-0 nylon for the skin. Sterile dressings were applied. I then turned attention to the left proximal tibia ORIF. I made a curvilinear incision. There was a previous incision from her distal femur ORIF. I approached this and extended longitudinally ending at Gerdy's tubercle. I approached this incision at approximately 60 degrees oblique angle to minimize the impact on wound healing. I made a curvilinear incision centered on Gerdy's tubercle I dissected through skin and subcutaneous tissue. I identified the IT band layer, which was incised sharply at Gerdy's tubercle. I then elevated the anterior compartment musculature off of the tibia, exposing the proximal tibia. I then used a Haley and cleared soft tissue off of the lateral tibial cortex and then introduced the proximal tibial locking plate and placed two guide wires in the proximal portion parallel to the joint surface. I then placed a single conical screw followed by two 5 mm locking screws across the tibial plateau. I then used the plate as a reduction tool and reduced the fragment of bone distally using a cortex screw. I then placed two additional locking screws percutaneously using C-arm fluoroscopic guidance. This was then followed by placing an additional oblique screw from distal-lateral to proximal medial for additional fixation. After completion of the tibial fixation, final fluoroscopic images were taken. The wounds were then thoroughly irrigated with normal saline and closed in layers. The percutaneous stab incisions were closed with nolan. The IT band/anterior compartment layer was closed with interrupted 0 Vicryl suture in [id number] fashion. Subcutaneous layer was closed with buried 2-0 Vicryl suture, and the skin was closed with nolan. A mixture of 0.5% Marcaine and 1% lidocaine without epinephrine were injected into all incisions for local pain control. Sterile dressings were applied, thus ended the procedure. I was present and scrubbed in for all critical portions of the case. POSTOPERATIVE PLAN: Right ankle was placed into a well-padded L and U splint. The left tibia was placed in a knee mobilizer. She will be nonweightbearing to bilateral lower extremities. She will return to the hospital floor under the care of the hospitalist service. She will begin physical therapy to work on transfers to wheelchair and left knee range of motion and will be discharged home when criteria met. [place]
[2019-02-04] MEDS: RIVAROXABAN 10 MG TAB (XARELTO) PO SCH (17:59)
--- NOTE | 2019-02-04 18:21 | IPNPDOC ---
Text Note Date of Service The patient was seen on 02/04/19. NOTE Subjective: Patient is a 68-year-old female with a PMHx of IDDM2, HTN, Hypothyroidism who presented to the ER after experiencing a fall. In the emergency room, patient was found to have a fracture of her left tibia-fibula and right bimalleolar ankle fracture. Patient will be admitted to hospitalist service for further evaluation and treatment and orthopedic surgery will be called to manage the acute fractures. Patient was seen and examined at the bedside. Patient seen postoperatively. She denies any chest pain, shortness of breath or palpitations. Denies nausea, vomiting, abdominal pain. Patient has noted that she has been able to pass gas. However, she has not yet had a bowel movement. She denies any urinary discomfort. Objective: Vitals (See below) General: Lying in bed, no acute distress, comfortable, AAOx3 HEENT: NC, AT CVS: RRR, +S1S2 Lungs: Fair air entry b/l, -w/r/r Abdomen: Soft, ND, NT, +BSx4 Extremities: - Edema, - Calf tenderness, right ankle in dressing, left leg splinted Assessment and plan: Right ankle bimalleolar fracture and left tib-fib fracture - likely 2/2 mechan ical fall - s/p OR correction (POD#1) with Dr. Marin - Pain control, anticoagulation and physical therapy at the direction of orthopedic surgery Leukocytosis - likely 2/2 reactive etiology, unlikely 2/2 infection - Review systems does not indicate any sources of infection - Patient remains afebrile and hemodynamically stable - Will hold off on starting antibiotics IDDM2 - c/w ISS HTN - Blood pressure appears well controlled - c/w Ramipril Hypothyroidism - c/w Levothyroxine DVT prophylaxis - As per orthopedic surgery; patient has been put on Xarelto VS,Fishbone, I+O VS, Fishbone, I+O Laboratory Tests 02/04/19 06:33 Red Blood Count 4.02, Mean Corpuscular Volume 92.3, Mean Corpuscular Hemoglobin 29.4, Mean Corpuscular Hemoglobin Concent 31.8 L, Red Cell Distribution Width 12.7, Calcium Level 8.2 L Vital Signs Date Time Temp Pulse Resp B/P (MAP) Pulse Ox O2 Delivery O2 Flow Rate FiO2 02/04/19 15:00 97.5 91 18 111/55 (73) 95 02/04/19 09:50 2.0 02/03/19 20:52 Room Air I&O- Last 24 Hours up to 6 AM 02/04/19 06:00 Intake Total 2100 ml Output Total 1450 ml Balance 650 ml ALIS TARANGO MD Feb 04, 2019 18:21
[2019-02-04] MEDS: LEVEMIR (INSULIN DETEMIR) 1 UNITS/0.01ML SC SCH (23:05)
[2019-02-05 06:00] VITALS: BP 140/63
[2019-02-05] MEDS: LEVOTHYROXINE 125MCG TABLET (0.125MG) PO SCH (06:30)
[2019-02-05] MEDS: RAMIPRIL 1.25 MG CAP PO SCH (08:07)
[2019-02-05] MEDS: SENOKOT S TAB PO SCH ×2 (08:07→21:15)
[2019-02-05] MEDS: LEVEMIR (INSULIN DETEMIR) 1 UNITS/0.01ML SC SCH ×2 (08:08→21:16)
[2019-02-05] MEDS: MIRALAX *UNIT DOSE* 17GM PACKET PO SCH (08:09)
[2019-02-05] MEDS: HumaLOG INSULIN (NovoLOG) PER UNIT SC SCH ×4 (08:09→21:16)
[2019-02-05] MEDS: MOM 30ML SUSPENSION UDC PO SCH (08:09)
[2019-02-05 14:00] VITALS: BP 155/67
--- NOTE | 2019-02-05 14:18 | IPNPDOC ---
Text Note Date of Service The patient was seen on 02/05/19. NOTE Subjective: Patient is a 68-year-old female with a PMHx of IDDM2, HTN, Hypothyroidism who presented to the ER after experiencing a fall. In the emergency room, patient was found to have a fracture of her left tibia-fibula and right bimalleolar ankle fracture. Patient will be admitted to hospitalist service for further evaluation and treatment and orthopedic surgery will be called to manage the acute fractures. Patient was seen and examined at the bedside. Currently patient has worked with physical therapy but reports very slow progression. Denies chest pain, shortness of breath or palpitations. Denies nausea, vomiting, abdominal pain, constipation, diarrhea or discomfort with urination. Objective: Vitals (See below) General: Lying in bed, no acute distress, comfortable, AAOx3 HEENT: NC, AT CVS: RRR, +S1S2 Lungs: Fair air entry b/l, no evidence of wheezing, rales or rhonchi Abdomen: Soft, ND, non-tender Extremities: No evidence of lower extremity edema, - Calf tenderness, right ankle in dressing, left leg splinted Assessment and plan: Right ankle bimalleolar fracture and left tib-fib fracture - likely 2/2 mechanical fall - s/p OR correction (POD#2) with Dr. Marin - Pain control, anticoagulation and PT at the direction of orthopedic surgery Leukocytosis - likely 2/2 reactive etiology, unlikely 2/2 infection - Improving - Review systems does not indicate any sources of infection - Patient remains afebrile and hemodynamically stable - Will continue to hold off on antibiotics IDDM2 - c/w ISS HTN - Blood pressure appears well controlled - c/w Ramipril Hypothyroidism - c/w Levothyroxine DVT prophylaxis - As per orthopedic surgery; patient has been put on Xarelto VS,Fishbone, I+O VS, Fishbone, I+O Vital Signs Date Time Temp Pulse Resp B/P (MAP) Pulse Ox O2 Delivery O2 Flow Rate FiO2 02/05/19 08:46 16 02/05/19 08:07 140/63 02/05/19 06:00 98.8 108 94 02/04/19 09:50 2.0 02/03/19 20:52 Room Air I&O- Last 24 Hours up to 6 AM 02/05/19 06:00 Intake Total 2840 ml Output Total 650 ml Balance 2190 ml ALIS TARANGO MD Feb 05, 2019 14:18
[2019-02-05] MEDS ORDERED: ACETAMINOPHEN 500 MG TAB PO SCH (17:15)
[2019-02-05] MEDS ORDERED: traMADol 50 MG TAB PO PRN ×2 (17:15→17:45)
[2019-02-05] MEDS: RIVAROXABAN 10 MG TAB (XARELTO) PO SCH (17:41)
[2019-02-05] MEDS: ACETAMINOPHEN 500 MG TAB PO SCH (21:16)
[2019-02-05 22:00] VITALS: BP 143/89
[2019-02-06 02:00] VITALS: BP 148/65
[2019-02-06] MEDS: traMADol 50 MG TAB PO PRN ×3 (02:33→17:40)
[2019-02-06 06:00] VITALS: BP 140/66
[2019-02-06] MEDS: ACETAMINOPHEN 500 MG TAB PO SCH ×3 (06:00→20:58)
[2019-02-06] MEDS: LEVOTHYROXINE 125MCG TABLET (0.125MG) PO SCH (06:00)
[2019-02-06 07:17] LABS: BASO # 0.1 10^3/uL (0.0-0.2); BASO % 0.7 % (0.0-1.0); EOS # 0.1 10^3/uL (0.0-0.50); EOS % 1.7 % (0.0-3.0); HEMATOCRIT 33.2 % (36.0-47.0); HEMOGLOBIN 10.8 g/dl (12.0-15.5); LYMPH # 1.7 10^3/uL (1.5-4.5); LYMPH % 20.8 % (24.0-44.0); MEAN CORPUSCULAR HEMOGLOBIN 29.8 pg (27.0-33.0); MEAN CORPUSCULAR HGB CONC 32.5 g/dl (32.0-36.5); MEAN CORPUSCULAR VOLUME 91.7 fl (80.0-96.0); MONO # 1.1 10^3/uL (0.0-0.8); MONO % 12.9 % (0.0-5.0); NEUTROPHILS # 5.2 10^3/uL (1.8-7.7); NEUTROPHILS % 63.4 % (36.0-66.0); PLATELET COUNT, AUTOMATED 237 10^3/uL (150-450); RED BLOOD COUNT 3.62 10^6/uL (4.00-5.40); WHITE BLOOD COUNT 8.2 10^3/uL (4.0-10.0)
[2019-02-06 07:44] LABS: BLOOD UREA NITROGEN 13 MG/DL (7-18); CALCIUM LEVEL 8.4 MG/DL (8.8-10.2); CARBON DIOXIDE LEVEL 30 MEQ/L (21-32); CHLORIDE LEVEL 100 MEQ/L (98-107); GLOMERULAR FILTRATION RATE > 60.0 (>45); GLUCOSE, FASTING 201 MG/DL (70-100); MAGNESIUM LEVEL 1.9 MG/DL (1.8-2.4); POTASSIUM SERUM 4.1 MEQ/L (3.5-5.1); SODIUM LEVEL 137 MEQ/L (136-145)
[2019-02-06] MEDS: MIRALAX *UNIT DOSE* 17GM PACKET PO SCH (08:37)
[2019-02-06] MEDS: SENOKOT S TAB PO SCH ×2 (08:37→20:57)
[2019-02-06] MEDS: LEVEMIR (INSULIN DETEMIR) 1 UNITS/0.01ML SC SCH ×2 (08:56→20:57)
[2019-02-06] MEDS: MOM 30ML SUSPENSION UDC PO SCH (08:57)
[2019-02-06] MEDS: RAMIPRIL 1.25 MG CAP PO SCH (08:57)
[2019-02-06] MEDS: HumaLOG INSULIN (NovoLOG) PER UNIT SC SCH ×4 (08:57→21:00)
[2019-02-06 10:00] VITALS: BP 153/67
--- NOTE | 2019-02-06 12:38 | IPNPDOC ---
Text Note Date of Service The patient was seen on 02/06/19. NOTE Subjective: Patient is a 68-year-old female with a PMHx of IDDM2, HTN, Hypothyroidism who presented to the ER after experiencing a fall. In the emergency room, patient was found to have a fracture of her left tibia-fibula and right bimalleolar ankle fracture. Patient will be admitted to hospitalist service for further evaluation and treatment and orthopedic surgery will be called to manage the acute fractures. Patient was seen and examined at the bedside. Currently patient is continue to work with physical therapy. Denies chest pain, shortness of breath or palpitations. Denies nausea, vomiting, abdominal pain, constipation, diarrhea or discomfort with urination. Objective: Vitals (See below) General: Lying in bed, no acute distress, comfortable, AAOx3 HEENT: NC, AT CVS: RRR, +S1S2 Lungs: Fair air entry b/l, no evidence of rhonchi, wheezing or rales on auscultation Abdomen: Abdomen remains soft, nondistended, without tenderness Extremities: Lower extremities are without any edema, - Calf tenderness, right ankle in dressing, left leg splinted Assessment and plan: Right ankle bimalleolar fracture and left tib-fib fracture - likely 2/2 mechanical fall - s/p OR correction (POD#3) with Dr. Marin - Pain control, anticoagulation and PT at the direction of orthopedic surgery s/p Leukocytosis - likely 2/2 reactive etiology, unlikely 2/2 infection - Review systems does not indicate any sources of infection - Patient remains afebrile and hemodynamically stable - Will hold off on antibiotics IDDM2 - c/w ISS HTN - Blood pressure appears well controlled - c/w Ramipril Hypothyroidism - c/w Levothyroxine DVT prophylaxis - As per orthopedic surgery; patient has been put on Xarelto Disposition: - We will continue physical therapy. Anticipate transition to subacute rehabilitation if patient is willing Farida LOO, I+O VS, Farida, I+O Laboratory Tests 02/06/19 06:56 Red Blood Count 3.62 L, Mean Corpuscular Volume 91.7, Mean Corpuscular Hemoglobin 29.8, Mean Corpuscular Hemoglobin Concent 32.5, Red Cell Distribution Width 12.7, Neutrophils (%) (Auto) 63.4, Lymphocytes (%) (Auto) 20.8 L, Monocyte s (%) (Auto) 12.9 H, Eosinophils (%) (Auto) 1.7, Basophils (%) (Auto) 0.7, Neutrophils # (Auto) 5.2, Lymphocytes # (Auto) 1.7, Monocytes # (Auto) 1.1 H, Eosinophils # (Auto) 0.1, Basophils # (Auto) 0.1, Calcium Level 8.4 L Vital Signs Date Time Temp Pulse Resp B/P (MAP) Pulse Ox O2 Delivery O2 Flow Rate FiO2 02/06/19 10:00 97.5 87 16 153/67 (95) 95 02/04/19 09:50 2.0 02/03/19 20:52 Room Air I&O- Last 24 Hours up to 6 AM 02/06/19 06:00 Intake Total 1440 ml Output Total 1050 ml Balance 390 ml ALIS TARANGO MD Feb 06, 2019 12:38
[2019-02-06 14:00] VITALS: BP 155/78
[2019-02-06] MEDS: RIVAROXABAN 10 MG TAB (XARELTO) PO SCH (17:39)
[2019-02-06 22:00] VITALS: BP 160/70
[2019-02-07] MEDS: ACETAMINOPHEN 500 MG TAB PO SCH (05:44)
[2019-02-07] MEDS: LEVOTHYROXINE 125MCG TABLET (0.125MG) PO SCH (05:44)
[2019-02-07 06:00] VITALS: BP 110/53
[2019-02-07 06:02] LABS: BASO % 0.5 % (0.0-1.0); EOS # 0.1 10^3/uL (0.0-0.50); EOS % 0.9 % (0.0-3.0); HEMATOCRIT 34.4 % (36.0-47.0); HEMOGLOBIN 10.7 g/dl (12.0-15.5); LYMPH # 1.3 10^3/uL (1.5-4.5); LYMPH % 15.8 % (24.0-44.0); MEAN CORPUSCULAR HEMOGLOBIN 29.7 pg (27.0-33.0); MEAN CORPUSCULAR HGB CONC 31.1 g/dl (32.0-36.5); MEAN CORPUSCULAR VOLUME 95.6 fl (80.0-96.0); MONO # 1.1 10^3/uL (0.0-0.8); MONO % 13.8 % (0.0-5.0); NEUTROPHILS # 5.6 10^3/uL (1.8-7.7); NEUTROPHILS % 68.5 % (36.0-66.0); PLATELET COUNT, AUTOMATED 194 10^3/uL (150-450); WHITE BLOOD COUNT 8.2 10^3/uL (4.0-10.0)
[2019-02-07 06:16] LABS: BLOOD UREA NITROGEN 14 MG/DL (7-18); CALCIUM LEVEL 8.1 MG/DL (8.8-10.2); CARBON DIOXIDE LEVEL 27 MEQ/L (21-32); CHLORIDE LEVEL 99 MEQ/L (98-107); CREATININE FOR GFR 0.65 MG/DL (0.55-1.30); GLOMERULAR FILTRATION RATE > 60.0 (>45); GLUCOSE, FASTING 244 MG/DL (70-100); MAGNESIUM LEVEL 1.8 MG/DL (1.8-2.4); POTASSIUM SERUM 4.7 MEQ/L (3.5-5.1); SODIUM LEVEL 136 MEQ/L (136-145)
[2019-02-07] MEDS ORDERED: TRAM50TA2 PO (07:50)
[2019-02-07] MEDS ORDERED: XARE10TA PO (07:50)
[2019-02-07] MEDS ORDERED: ACET-683 PO (07:50)
[2019-02-07] MEDS: LEVEMIR (INSULIN DETEMIR) 1 UNITS/0.01ML SC SCH (08:32)
[2019-02-07] MEDS: HumaLOG INSULIN (NovoLOG) PER UNIT SC SCH (08:33)
[2019-02-07 08:35] VITALS: BP 110/53
[2019-02-07] MEDS: SENOKOT S TAB PO SCH (08:35)
[2019-02-07] MEDS: RAMIPRIL 1.25 MG CAP PO SCH (08:35)
[2019-02-07] MEDS: MIRALAX *UNIT DOSE* 17GM PACKET PO SCH (08:37)
[2019-02-07] MEDS: MOM 30ML SUSPENSION UDC PO SCH (09:00)
[2019-02-07] MEDS ORDERED: BISACODYL 10 MG SUPP PR SCH (09:00)
[2019-02-07] MEDS ORDERED: VITAMIN D 50,000 UNITS CAPSULE (ERGOCALCIFEROL 1.25MG) PO ONE (12:00)
--- NOTE | 2019-02-07 14:53 | DS.PDOC ---
Discharge Summary General Date of Admission Feb 03, 2019 at 20:27 Date of Discharge 02/07/2019 Discharge Summary PROCEDURES PERFORMED DURING STAY: 02/04/2019 Right ankle open reduction internal fixation, bimalleolar ankle fracture and left tibia open reduction internal fixation with Dr. So Marin ADMITTING DIAGNOSES / DISCHARGE DIAGNOSES: Right ankle bimalleolar fracture and left tib-fib fracture - likely 2/2 mechanical fall s/p Leukocytosis - likely 2/2 reactive etiology, unlikely 2/2 infection IDDM2 HTN Hypothyroidism DVT prophylaxis COMPLICATIONS/CHIEF COMPLAINT: Fall with severe left and right leg pain HISTORY OF PRESENT ILLNESS: Patient is a 68-year-old female with a PMHx of IDDM2, HTN, Hypothyroidism who presented to the ER after experiencing a fall. In the emergency room, patient was found to have a fracture of her left tibia-fibula and right bimalleolar ankle fracture. Patient will be admitted to hospitalist service for further evaluation and treatment and orthopedic surgery will be called to manage the acute fractures. HOSPITAL COURSE: Right ankle bimalleolar fracture and left tib-fib fracture - likely 2/2 mechanical fall - s/p OR correction (POD#4) with Dr. Marin - Pain control, anticoagulation and PT at the direction of orthopedic surgery - Patient will continue to require physical therapy and will be transition to [facility] for further assistance s/p Leukocytosis - likely 2/2 reactive etiology, unlikely 2/2 infection - Review systems does not indicate any sources of infection - Patient remains afebrile and hemodynamically stable - Has not required antibiotics IDDM2 - c/w ISS HTN - Blood pressure appears well controlled - c/w Ramipril Hypothyroidism - c/w Levothyroxine DVT prophylaxis - As per orthopedic surgery; patient has been put on Xarelto DISCHARGE MEDICATIONS: Please see below. ALLERGIES: Please see below. PHYSICAL EXAMINATION ON DISCHARGE: Vitals (See below) General: Lying in bed, no acute distress, comfortable, AAOx3 HEENT: NC, AT CVS: RRR, +S1S2 Lungs: Air entry is fair bilaterally, without any evidence of wheezing, rhonchi or rales Abdomen: No evidence of abdominal distention or tenderness, remains soft Extremities: Lower extremities do not reveal any evidence of edema, - Calf tenderness, left leg remains and splinting device, right leg is in dressing LABORATORY DATA: Please see below. ACTIVITY: [As tolerated]. DISCHARGE PLAN: Follow up with DISPOSITION: [facility]. DISCHARGE CONDITION: [Stable]. TIME SPENT ON DISCHARGE: Greater than [35] minutes. Vital Signs/I&Os Vital Signs Date Time Temp Pulse Resp B/P (MAP) Pulse Ox O2 Delivery O2 Flow Rate FiO2 02/07/19 08:35 110/53 02/07/19 06:00 96.2 95 20 96 02/04/19 09:50 2.0 02/03/19 20:52 Room Air I&O- Last 24 Hours up to 6 AM 02/07/19 06:00 Intake Total 1560 ml Output Total 500 ml Balance 1060 ml Laboratory Data Labs 24H Laboratory Tests 2 02/06/19 16:51: Bedside Glucose (Misc Panel) 178H 02/06/19 17:09: Bedside Glucose (Misc Panel) 172H 02/06/19 21:32: Bedside Glucose (Misc Panel) 143H 02/07/19 05:23: Immature Granulocyte % (Auto) 0.5, White Blood Count 8.2, Red Blood Count 3.60L, Hemoglobin 10.7L, Hematocrit 34.4L, Mean Corpuscular Volume 95.6, Mean Corpuscular Hemoglobin 29.7, Mean Corpuscular Hemoglobin Concent 31.1L, Red Cell Distribution Width 12.7, Platelet Count 194, Neutrophils (%) (Auto) 68.5H, Lymphocytes (%) (Auto) 15.8L, Monocytes (%) (Auto) 13.8H, Eosinophils (%) (Auto) 0.9, Basophils (%) (Auto) 0.5, Neutrophils # (Auto) 5.6, Lymphocytes # (Auto) 1 .3L, Monocytes # (Auto) 1.1H, Eosinophils # (Auto) 0.1, Basophils # (Auto) 0.0, Nucleated Red Blood Cells % (auto) 0.0, Anion Gap 10, Glomerular Filtration Rate > 60.0, Blood Urea Nitrogen 14, Creatinine 0.65, Sodium Level 136, Potassium Level 4.7, Chloride Level 99, Carbon Dioxide Level 27, Calcium Level 8.1L, Magnesium Level 1.8 02/07/19 11:20: Bedside Glucose (Misc Panel) 265H CBC/BMP Laboratory Tests 02/07/19 05:23 Red Blood Count 3.60 L, Mean Corpuscular Volume 95.6, Mean Corpuscular Hemoglobin 29.7, Mean Corpuscular Hemoglobin Concent 31.1 L, Red Cell Distribution Width 12.7, Neutrophils (%) (Auto) 68.5 H, Lymphocytes (%) (Auto) 15.8 L, Monocytes (%) (Auto) 13.8 H, Eosinophils (%) (Auto) 0.9, Basophils (%) (Auto) 0.5, Neutrophils # (Auto) 5.6, Lymphocytes # (Auto) 1.3 L, Monocytes # (Auto) 1.1 H, Eosinophils # (Auto) 0.1, Basophils # (Auto) 0.0, Calcium Level 8.1 L FSBS Laboratory Tests Test 02/06/19 16:51 02/06/19 17:09 02/06/19 21:32 02/07/19 11:20 Range/Units Bedside Glucose (Misc Panel) 178 172 143 265 80-115 MG/DL Discharge Medications Scheduled Insulin Human NPH (Novolin N) 1 Ml Susp, 26 UNITS SC QAM, (Reported) Insulin Human NPH (Novolin N) 1 Ml Susp, 8 UNITS SC QPM, (Reported) Levothyroxine Sodium (Synthroid) 125 Mcg Tab, 125 MCG PO DAILY, (Reported) Ramipril (Ramipril) 2.5 Mg Cap, 2.5 MG PO DAILY, (Reported) Rivaroxaban (Xarelto) 10 Mg Tab, 10 MG PO DAILY Vitamin D (Drisdol) 50,000 Unit Cap, 50,000 UNIT PO QWEEK, (Reported) SUNDAY EVENING Scheduled PRN Acetaminophen (Acetaminophen Extra Stren) 500 Mg Tab, 1,000 MG PO Q8H PRN for SCHED Tramadol HCl (Tramadol HCl) 50 Mg Tab, 2 TAB PO Q6H PRN for PAIN Allergies Coded Allergies: latex (Verified Allergy, Severe, rash, blisters, 02/05/19) hydrocodone (Verified Adverse Reaction, Intermediate, CAN TAKE TYLENOL, N/V FROM HYDROCODONE IN VICODIN, 02/05/19) ALIS TARANGO MD Feb 07, 2019 14:53
[2019-02-08] MEDS ORDERED: BISACODYL 10 MG SUPP PR SCH (09:00)
== END 2019-02-07 12:50 | DRG 493 ==
LOC: EDBD 16:17 → M ED 16:17 → M SDC 19:16 → M ED INP 20:27 → UNDOADMIN 02-04 01:49 → M ED INP 02-04 02:44 → M MS5PR 02-04 02:44
PROVIDERS: ADMIT Orthopaedic Surgery; ATTEND Internal Medicine
PROC: 0QSJ04Z Reposition Right Fibula with Internal Fixation Device, Open Approach (ICD-10-PCS; principal; 2019-02-04)
PROC: 0QSH04Z Reposition Left Tibia with Internal Fixation Device, Open Approach (ICD-10-PCS; 2019-02-04)
DX: S82.841A Displaced bimalleolar fracture of right lower leg, initial encounter for closed fracture (principal); S82.255A Nondisplaced comminuted fracture of shaft of left tibia, initial encounter for closed fracture; E11.9 Type 2 diabetes mellitus without complications; I10 Essential (primary) hypertension; E03.9 Hypothyroidism, unspecified; W01.0XXA Fall on same level from slipping, tripping and stumbling without subsequent striking against object, initial encounter; Y92.010 Kitchen of single-family (private) house as the place of occurrence of the external cause; Z79.4 Long term (current) use of insulin; Z79.82 Long term (current) use of aspirin; Z79.899 Other long term (current) drug therapy; Z88.5 Allergy status to narcotic agent; Z88.6 Allergy status to analgesic agent; Z91.040 Latex allergy status; Z87.891 Personal history of nicotine dependence

== ENCOUNTER → 2019-02-10 | Outpatient (REF) | payer MEDICARE, OTHER ==
[~2019-02-10] MED LIST changes: +ACET-683 PO; +ACET1TAB55 PO; +ALEV220T26 PO; +ASPI1TAB PO; +DRIS50003 PO; +INSUN SC; +LEVO125T4; +RAMI1CAP22 PO; +SYNT125T PO; +TRAM50TA2 PO; +XARE10TA PO
[2019-02-10 14:05] LABS: HEMATOCRIT 36.5 % (36.0-47.0); HEMOGLOBIN 11.7 g/dl (12.0-15.5); MEAN CORPUSCULAR HEMOGLOBIN 29.1 pg (27.0-33.0); MEAN CORPUSCULAR HGB CONC 32.1 g/dl (32.0-36.5); MEAN CORPUSCULAR VOLUME 90.8 fl (80.0-96.0); PLATELET COUNT, AUTOMATED 393 10^3/uL (150-450); RED BLOOD COUNT 4.02 10^6/uL (4.00-5.40); WHITE BLOOD COUNT 4.2 10^3/uL (4.0-10.0)
[2019-02-10 14:29] LABS: BLOOD UREA NITROGEN 22 MG/DL (7-18); CALCIUM LEVEL 7.9 MG/DL (8.8-10.2); CARBON DIOXIDE LEVEL 28 MEQ/L (21-32); CHLORIDE LEVEL 96 MEQ/L (98-107); CREATININE FOR GFR 0.71 MG/DL (0.55-1.30); GLOMERULAR FILTRATION RATE > 60.0 (>45); GLUCOSE, FASTING 338 MG/DL (70-100); POTASSIUM SERUM 4.4 MEQ/L (3.5-5.1); SODIUM LEVEL 133 MEQ/L (136-145)
== END ==
PROVIDERS: ATTEND Internal Medicine
DX: I10 Essential (primary) hypertension (principal)

== ENCOUNTER → 2019-02-13 | Outpatient (REF) | payer MEDICARE, OTHER ==
[~2019-02-13] MED LIST changes: -/INSUNPH SC; -DOCU10ELUD PO; +DOCU5LIQ PO; +NOVO1INJ3 SC
[2019-02-13 10:05] LABS: HEMATOCRIT 39.7 % (36.0-47.0); HEMOGLOBIN 12.6 g/dl (12.0-15.5); MEAN CORPUSCULAR HEMOGLOBIN 29.1 pg (27.0-33.0); MEAN CORPUSCULAR HGB CONC 31.7 g/dl (32.0-36.5); MEAN CORPUSCULAR VOLUME 91.7 fl (80.0-96.0); PLATELET COUNT, AUTOMATED 520 10^3/uL (150-450); RED BLOOD COUNT 4.33 10^6/uL (4.00-5.40); WHITE BLOOD COUNT 6.4 10^3/uL (4.0-10.0)
[2019-02-13 10:26] LABS: BLOOD UREA NITROGEN 13 MG/DL (7-18); CALCIUM LEVEL 8.6 MG/DL (8.8-10.2); CARBON DIOXIDE LEVEL 24 MEQ/L (21-32); CHLORIDE LEVEL 100 MEQ/L (98-107); GLOMERULAR FILTRATION RATE > 60.0 (>45); GLUCOSE, FASTING 355 MG/DL (70-100); POTASSIUM SERUM 4.6 MEQ/L (3.5-5.1); SODIUM LEVEL 133 MEQ/L (136-145)
== END ==
PROVIDERS: ATTEND Internal Medicine
DX: R19.7 Diarrhea, unspecified (principal)

== ENCOUNTER → 2019-02-18 | Outpatient (REF) | payer MEDICARE, OTHER ==
[~2019-02-18] MED LIST changes: -ASPI1TAB PO; +ASPI81TA26 PO
[2019-02-18 09:17] LABS: HEMATOCRIT 40.1 % (36.0-47.0); HEMOGLOBIN 12.5 g/dl (12.0-15.5); MEAN CORPUSCULAR HEMOGLOBIN 29.2 pg (27.0-33.0); MEAN CORPUSCULAR HGB CONC 31.2 g/dl (32.0-36.5); MEAN CORPUSCULAR VOLUME 93.7 fl (80.0-96.0); PLATELET COUNT, AUTOMATED 631 10^3/uL (150-450); RED BLOOD COUNT 4.28 10^6/uL (4.00-5.40); WHITE BLOOD COUNT 6.5 10^3/uL (4.0-10.0)
[2019-02-18 09:41] LABS: BLOOD UREA NITROGEN 14 MG/DL (7-18); CALCIUM LEVEL 9.1 MG/DL (8.8-10.2); CARBON DIOXIDE LEVEL 27 MEQ/L (21-32); CHLORIDE LEVEL 99 MEQ/L (98-107); CREATININE FOR GFR 0.68 MG/DL (0.55-1.30); GLOMERULAR FILTRATION RATE > 60.0 (>45); GLUCOSE, FASTING 364 MG/DL (70-100); POTASSIUM SERUM 5.3 MEQ/L (3.5-5.1); SODIUM LEVEL 133 MEQ/L (136-145)
== END ==
PROVIDERS: ATTEND Internal Medicine
DX: I10 Essential (primary) hypertension (principal)

== ENCOUNTER → 2019-03-05 | Outpatient (REF) | payer MEDICARE, OTHER ==
[2019-03-05 10:36] LABS: HEMOGLOBIN 13.2 g/dl (12.0-15.5); MEAN CORPUSCULAR HEMOGLOBIN 29.8 pg (27.0-33.0); MEAN CORPUSCULAR HGB CONC 31.4 g/dl (32.0-36.5); MEAN CORPUSCULAR VOLUME 94.8 fl (80.0-96.0); PLATELET COUNT, AUTOMATED 243 10^3/uL (150-450); RED BLOOD COUNT 4.43 10^6/uL (4.00-5.40); WHITE BLOOD COUNT 4.8 10^3/uL (4.0-10.0)
[2019-03-05 11:08] LABS: BLOOD UREA NITROGEN 14 MG/DL (7-18); CALCIUM LEVEL 9.1 MG/DL (8.8-10.2); CARBON DIOXIDE LEVEL 28 MEQ/L (21-32); CHLORIDE LEVEL 104 MEQ/L (98-107); GLOMERULAR FILTRATION RATE > 60.0 (>45); GLUCOSE, FASTING 182 MG/DL (70-100); POTASSIUM SERUM 4.3 MEQ/L (3.5-5.1); SODIUM LEVEL 140 MEQ/L (136-145)
== END ==
PROVIDERS: ATTEND Internal Medicine
DX: I10 Essential (primary) hypertension (principal)

== ENCOUNTER → 2020-07-02 | Outpatient (CLI) | payer MEDICARE, OTHER ==
--- NOTE | 2020-08-03 09:41 | REP ---
AP PELVIS AND BILATERAL HIP SERIES TOTAL OF 5 VIEWS Delay in reporting results from hospital computer malfunction as a result of malware / ransomeware. AP PELVIS: There is demineralization. There is moderate joint space narrowing of the hips bilaterally compatible with articular cartilage atrophy. There are numerous calcifications in the buttocks bilaterally, likely injection granulomas. The sacroiliac articulations are unremarkable. There is no fracture or dislocation. IMPRESSION: Bilateral femoroacetabular joint space narrowing. RIGHT HIP 2-VIEWS: There is joint space narrowing with osteophytic growth compatible with articular cartilage atrophy and osteoarthritis. There is no femoral head deformity. No fracture or dislocation. There is demineralization. There are numerous calcifications in the right buttocks, likely injection granulomas. IMPRESSION: Joint space narrowing and osteophyte compatible with articular cartilage atrophy and osteoarthritis. Demineralization. Soft tissue calcifications in the buttocks. LEFT HIP 2-VIEWS: There is demineralization. There is mild joint space narrowing compatible with articular cartilage atrophy. There is a small osteophyte forming on the femoral head. This is compatible with osteoarthritis. There is internal fixation of the proximal humeral shaft. I suspect there is a focus of myositis ossificans adjacent to the internal fixation. There are numerous calcifications in the left buttocks, likely injection granulomas. IMPRESSION: Left hip osteoarthritis. Demineralization. Internal fixation of the proximal humeral shaft. Myositis ossificans in the proximal thigh. Left buttock calcifications likely injection granulomas. MTDD
--- NOTE | 2020-08-03 09:42 | REP ---
PLAIN FILM STUDY LUMBAR SPINE: 5-VIEWS Delay in reporting results from hospital computer malfunction as a result of malware / ransomeware. COMPARISON: 01/04/2013. FINDINGS: There is demineralization. There is mild scoliosis convex right at the thoracolumbar junction, possibly positional. Vertebral body heights are normal. Interspacing demonstrates advanced degenerative disk disease at L5-S1. This is seen to better to better advantage on the prior study. I suspect there are bilateral L5 pars defects, seen to better advantage on the prior study. There is grade 1 anterolisthesis of L5, also unchanged. There are surgical clips in the abdominal right upper quadrant, unchanged. There is moderate degenerative disk disease at T12-L1 and L1-2, unchanged. Sacroiliac articulations are unremarkable. There are multiple calcifications in the buttocks bilaterally, likely injection granulomas. IMPRESSION: No significant interval change. Bilateral L5 pars defects with grade 1 anterolisthesis of, L5 and advanced degenerative disk disease at L5-S1. Moderate degenerative disk disease at T12-L1 and L1-2. Bilateral buttocks injection granulomas. Right upper quadrant surgical clips. Mild scoliosis convex right at the thoracolumbar junction. MTDD
== END ==
LOC: M WUC 09:51
PROVIDERS: ATTEND Family Medicine
DX: M54.30 Sciatica, unspecified side (principal); M16.12 Unilateral primary osteoarthritis, left hip; M51.37 Other intervertebral disc degeneration, lumbosacral region; M51.36 Other intervertebral disc degeneration, lumbar region; M51.35 Other intervertebral disc degeneration, thoracolumbar region

== ENCOUNTER → 2021-09-19 | Outpatient (CLI) | payer MEDICARE, OTHER ==
[2021-09-19 07:04] LABS: HEMATOCRIT 46.5 % (36.0-47.0); HEMOGLOBIN 14.7 g/dl (12.0-15.5); MEAN CORPUSCULAR HEMOGLOBIN 28.6 pg (27.0-33.0); MEAN CORPUSCULAR HGB CONC 31.6 g/dl (32.0-36.5); MEAN CORPUSCULAR VOLUME 90.5 fl (80.0-96.0); PLATELET COUNT, AUTOMATED 330 10^3/uL (150-450); RED BLOOD COUNT 5.14 10^6/uL (4.00-5.40); WHITE BLOOD COUNT 5.3 10^3/uL (4.0-10.0)
[2021-09-19 07:29] LABS: HEMOGLOBIN A1c 8.2 %
[2021-09-19 07:35] LABS: ALBUMIN 3.2 GM/DL (3.2-5.2); ALT/SGPT 18 U/L (12-78); BILIRUBIN,TOTAL 0.6 MG/DL (0.2-1.0); BLOOD UREA NITROGEN 13 MG/DL (7-18); CALCIUM LEVEL 9.4 MG/DL (8.8-10.2); CARBON DIOXIDE LEVEL 27 MEQ/L (21-32); CHLORIDE LEVEL 106 MEQ/L (98-107); CHOLESTEROL LEVEL 178 MG/DL (<200); CHOLESTEROL RISK RATIO 2.825 (<5); CREATININE FOR GFR 0.63 MG/DL (0.55-1.30); GLOMERULAR FILTRATION RATE > 60.0 (>45); GLUCOSE, FASTING 226 MG/DL (70-100); HDL CHOLESTEROL 63 MG/DL (>40); LDL CHOLESTEROL 98 MG/DL (<100); NON-HDL-C 115 MG/DL; POTASSIUM SERUM 4.4 MEQ/L (3.5-5.1); SODIUM LEVEL 139 MEQ/L (136-145); TOTAL PROTEIN 7.1 GM/DL (6.4-8.2); TRIGLYCERIDES LEVEL 84 MG/DL (<150)
[2021-09-19 10:55] LABS: TOTAL 25(OH) VITAMIN D 52.3 NG/ML (30.0-100.0)
== END ==
LOC: M LAB 06:34
PROVIDERS: ATTEND Family Medicine
DX: I10 Essential (primary) hypertension (principal); E11.9 Type 2 diabetes mellitus without complications; R53.83 Other fatigue

== ENCOUNTER → 2023-12-17 | Outpatient (CLI) | payer MEDICARE, OTHER ==
[2023-12-17 07:05] LABS: HEMATOCRIT 45.4 % (36.0-47.0); HEMOGLOBIN 14.6 g/dl (12.0-15.5); MEAN CORPUSCULAR HEMOGLOBIN 29.2 pg (27.0-33.0); MEAN CORPUSCULAR HGB CONC 32.2 g/dl (32.0-36.5); MEAN CORPUSCULAR VOLUME 90.8 fl (80.0-96.0); PLATELET COUNT, AUTOMATED 310 10^3/uL (150-450); WHITE BLOOD COUNT 5.8 10^3/uL (4.0-10.0)
[2023-12-17 07:13] LABS: HEMOGLOBIN A1c 8.5 % (4.0-6.0)
[2023-12-17 07:28] LABS: ALBUMIN 3.2 G/DL (3.2-5.2); ALKALINE PHOSPHATASE 108 U/L (46-116); ALT/SGPT 14 U/L (7.0-40); AST/SGOT 14 U/L (<34); BILIRUBIN,TOTAL 0.4 MG/DL (0.3-1.2); BLOOD UREA NITROGEN 17 MG/DL (9-23); CALCIUM LEVEL 9.2 MG/DL (8.3-10.6); CARBON DIOXIDE LEVEL 26 MMOL/L (20-31); CHLORIDE LEVEL 103 MMOL/L (98-107); CHOLESTEROL LEVEL 167 MG/DL (<200); CHOLESTEROL RISK RATIO 3.01 (<5); GLOMERULAR FILTRATION RATE > 60.0 (>39); GLUCOSE, FASTING 220 MG/DL (74-106); HDL CHOLESTEROL 55.3 MG/DL (>40); LDL CHOLESTEROL 91.3 MG/DL (<100); NON-HDL-C 111.7 MG/DL; POTASSIUM SERUM 4.3 MMOL/L (3.5-5.1); SODIUM LEVEL 137 MMOL/L (136-145); TOTAL PROTEIN 7.1 G/DL (5.7-8.2); TRIGLYCERIDES LEVEL 102 MG/DL (<150)
[2023-12-17 07:30] LABS: THYROID STIMULATING HORMONE 4.934 uIU/ML (0.55-4.78); TOTAL 25(OH) VITAMIN D 63.1 NG/ML (20.0-100.0)
== END ==
LOC: M LAB 06:31
PROVIDERS: ATTEND Family Medicine
DX: I10 Essential (primary) hypertension (principal); Z79.899 Other long term (current) drug therapy

== ENCOUNTER → 2025-09-25 | Outpatient (REF) | payer MEDICARE, OTHER ==
[~2025-09-25] MED LIST changes: -RAMI1CAP22 PO; +RAMI2.5C42 PO
== END ==
LOC: M SFHCPLAZ 00:13
PROVIDERS: ATTEND Family Medicine
DX: I10 Essential (primary) hypertension (principal); E13.9 Other specified diabetes mellitus without complications; E03.9 Hypothyroidism, unspecified; Z53.9 Procedure and treatment not carried out, unspecified reason